=== PATIENT | male | born 1985 | race Caucasian/White ===

== ENCOUNTER 2018-07-07 01:33 | Emergency (ER) | payer SELFPAY ==
[~2018-07-07] VITALS: Ht 170.2 cm; Wt 108.9 kg
--- NOTE | 2018-07-07 01:38 | NUR ---
Patient ambulated to bed 3. RN evaluating patient at bedside.
[2018-07-07 01:45] VITALS: BP 124/83
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
[2018-07-07] MEDS ORDERED: MECLIZINE 25 MG TAB PO ONE (03:50)
[2018-07-07] MEDS ORDERED: ACETAMINOPHEN EXTRA STRENGTH 500 MG TAB PO ONE (03:50)
[2018-07-07 04:43] VITALS: BP 126/61
== END 2018-07-07 04:44 | disposition home or self-care (01) ==
LOC: MED 01:33
DX: R42 Dizziness and giddiness (principal); Z88.0 Allergy status to penicillin; Y04.2XXA Assault by strike against or bumped into by another person, initial encounter; Y93.01 Activity, walking, marching and hiking; Y92.410 Unspecified street and highway as the place of occurrence of the external cause; Y99.8 Other external cause status
CPT/HCPCS: 99283; J8597